=== PATIENT | female | born 1935 | race Caucasian/White ===

== ENCOUNTER 2019-09-19 12:50 | Emergency (ER) | payer OTHER ==
[~2019-09-19] VITALS: Ht 162.6 cm; Wt 61.4 kg
[2019-09-19 13:02] VITALS: BP 114/67
[2019-09-19] MEDS ORDERED: TAM75C PO (14:20)
[2019-09-19] MEDS ORDERED: CODE10LI PO (14:22)
== END 2019-09-19 14:43 | disposition home or self-care (01) ==
LOC: ER 12:50
DX: J06.9 Acute upper respiratory infection, unspecified (principal); F03.90 Unspecified dementia, unspecified severity, without behavioral disturbance, psychotic disturbance, mood disturbance, and anxiety; Z79.899 Other long term (current) drug therapy
CPT/HCPCS: 87502; 87503; 99283